=== PATIENT | male | born 1995 | race Two or more races ===

== ENCOUNTER 2021-08-05 10:11 | Emergency (ER) | payer BC ==
[~2021-08-05] VITALS: Ht 167.6 cm; Wt 95.3 kg
[2021-08-05 10:20] VITALS: BP 136/85
--- NOTE | 2021-08-05 10:21 | NUR ---
BIBS C/O RT THUMB LAC S/P CAUGHT IN BETWEEN WHILE FOLDING A POCKET KNIFE. PAIN IS RATED 10/10. THUMB IS PRESENTLY BLEEDING. THUMB IS ENCASED IN A FOLDED TOWEL TOURNIQUET.
--- NOTE | 2021-08-05 10:22 | NUR ---
FINGER IS BEING IRRIGATED AT BEDSIDE
[2021-08-05] MEDS ORDERED: LIDOCAINE HCL/MPF 1% 30 ML VIAL IJ ONE (10:44)
[2021-08-05] MEDS ORDERED: BACI/NEOM/POLY B OINT PKT 1 UDPKT PACKET ONE (10:45)
[2021-08-05] MEDS ORDERED: TDAP [DIPH/PERTUSSIS/TET] 0.5 ML VIAL IM ONE ×2 (10:46→11:00)
[2021-08-05] MEDS ORDERED: BACI/NEOM/POLY B OINT PKT 1 UDPKT PACKET TP ONE (11:00)
[2021-08-05] MEDS ORDERED: LIDOCAINE HCL/PF 1% 30 ML VIAL TP ONE (11:00)
--- NOTE | 2021-08-05 11:20 | NUR ---
Patient discharged to home in stable condition. Written and verbal after care instructions given. Patient verbalizes understanding of instruction.
== END 2021-08-05 11:20 | disposition home or self-care (01) ==
LOC: ER 10:17
DX: S61.011A Laceration without foreign body of right thumb without damage to nail, initial encounter (principal); W26.0XXA Contact with knife, initial encounter; Y93.89 Activity, other specified; Y92.89 Other specified places as the place of occurrence of the external cause; Y99.8 Other external cause status
CPT/HCPCS: 12001; 90471; 90715; 99283; J3490